=== PATIENT | female | born 1990 | race Hispanic/Latino ===

== ENCOUNTER 2019-04-28 00:02 | Emergency (ER) | payer OTHER ==
[2019-04-28 00:35] LABS: APPEARANCE,URINE CLEAR (CLEAR); BILIRUBIN,URINE NEGATIVE (NEGATIVE); COLOR,URINE YELLOW (YELLOW); GLUCOSE, URINE (UA) NEGATIVE (NEGATIVE); KETONES,URINE NEGATIVE (NEGATIVE); LEUKOCYTE ESTERASE ,URINE NEGATIVE (NEGATIVE); NITRATE,URINE NEGATIVE (NEGATIVE); OCCULT BLOOD,URINE LARGE (NEGATIVE); PH,URINE 6.5 (5.0-8.0); PROTEIN,URINE NEGATIVE (NEGATIVE); UROBILINOGEN,URINE 0.2 mg/dL (0.2-1.0)
[2019-04-28 00:38] LABS: BACTERIA,URINE None Seen /HPF (None Seen); HCG,QUAL RESULT NEGATIVE (NEGATIVE); SQUAMOUS EPITHELIAL CELL,UR Moderate /HPF (0-2); WBC,URINE None Seen /HPF (0-1)
[2019-04-28] MEDS ORDERED: DOXYCYCLINE HYCLATE 100 MG TABLET PO ONE (00:52)
[2019-04-28] MEDS ORDERED: LIDOCAINE HCL-MPF 1% 2ML VIAL ONE (00:52)
[2019-04-28] MEDS ORDERED: CEFTRIAXONE SODIUM 1 GM ONE (00:53)
== END 2019-04-28 01:13 | disposition home or self-care (01) ==
LOC: EDH 00:02
DX: N73.9 Female pelvic inflammatory disease, unspecified (principal); Z98.890 Other specified postprocedural states
CPT/HCPCS: 81001; 81025; 96372; 99284; J0696; J3490